=== PATIENT | female | born 1975 | race Caucasian/White ===

== ENCOUNTER 2018-10-10 07:41 | Outpatient (CLI) | payer OTHER ==
[~2018-10-10 07:41] MED LIST: FEXO180T94 PO; MONT4TAB9 PO; MULT1TAB74 PO
== END 2018-10-10 23:59 | disposition home or self-care (01) ==
LOC: LAB 07:41
PROVIDERS: ATTEND Nurse Practitioner Family
DX: J18.9 Pneumonia, unspecified organism (principal); J45.909 Unspecified asthma, uncomplicated
CPT/HCPCS: 71046

== ENCOUNTER 2020-04-01 08:49 | Outpatient (CLI) | payer BC ==
[~2020-04-01 08:49] MED LIST changes: +MULT-620 PO; -MULT1TAB74 PO
[2020-04-01] MEDS ORDERED: LEVO50TA PO (16:53)
[2020-04-01] MEDS ORDERED: OMEP-50 PO (16:53)
[2020-04-01] MEDS ORDERED: VITA-268 PO (16:53)
[2020-04-01] MEDS ORDERED: ALBU8.5H8 PO (16:53)
[2020-04-01] MEDS ORDERED: MONT10TA26 PO (16:53)
== END 2020-04-01 23:59 | disposition home or self-care (01) ==
LOC: RAD 08:49
PROVIDERS: ATTEND Family Medicine
DX: K80.20 Calculus of gallbladder without cholecystitis without obstruction (principal); R16.0 Hepatomegaly, not elsewhere classified; N28.1 Cyst of kidney, acquired
CPT/HCPCS: 76700

== ENCOUNTER 2020-04-01 14:04 | Inpatient (IN) | payer BC ==
[~2020-04-01] VITALS: Ht 165.1 cm; Wt 70.5 kg
[2020-04-01 15:45] LABS: BASOPHILS # (AUTO) 0.1 X10'3 (0-0.2); BASOPHILS % (AUTO) 0.3 % (0-1); EOSINOPHILS % (AUTO) 0 % (0-6); HEMATOCRIT 40.7 % (35.0-45.0); HEMOGLOBIN 13.5 g/dl (12.0-16.0); LYMPHOCYTES # (AUTO) 0.8 X10'3 (1.1-4.8); MEAN CORPUSCULAR HGB CONC 33.3 g/dL (33.0-36.5); MEAN CORPUSCULAR VOLUME 90.2 FL (78-98); MEAN PLATELET VOLUME 8.9 FL (7.4-10.4); MONOCYTES # (AUTO) 0.8 X10'3 (0-0.9); MONOCYTES % (AUTO) 4.3 % (2-12); NEUTROPHILS # (AUTO) 17.9 X10'3 (1.8-7.7); NEUTROPHILS % (AUTO) 91.4 % (42-75); PLATELET COUNT 313 X10'3 (140-440); RED CELL DISTRIBUTION WIDTH 13.2 % (11.5-14.5); WHITE BLOOD COUNT 19.5 X10'3 (4.5-11.0)
[2020-04-01 16:01] LABS: ALANINE AMINOTRANSFERASE 719 U/L (12-78); ALBUMIN 3.9 G/DL (3.4-5.0); ALKALINE PHOSPHATASE 278 IU/L (46-116); ANION GAP 6 (8-16); ASPARTATE AMINO TRANSFERASE 731 U/L (10-37); BILIRUBIN,TOTAL 4.4 MG/DL (0.1-1.0); BLOOD UREA NITROGEN 9 MG/DL (7-18); BUN/CREATININE RATIO 9.5 (6.6-38.0); CALCIUM 9.1 MG/DL (8.5-10.1); CHLORIDE 101 MMOL/L (99-107); CREATININE 0.95 MG/DL (0.40-0.90); GLUCOSE 132 MG/DL (70-104); SODIUM 135 MMOL/L (135-145); TOTAL CARBON DIOXIDE 28.3 MMOL/L (24-32); eGFR 63 ML/MIN
[2020-04-01 16:08] LABS: TOTAL PROTEIN 7.8 G/DL (6.4-8.2)
[2020-04-01] MEDS ORDERED: normal saline 1000ML IV soln IVB ONE (16:40)
[2020-04-01] MEDS ORDERED: CefTRIAXone 1000mg IM Kit (w/lidocaine diluent) IM ONE (16:40)
[2020-04-01] MEDS ORDERED: LEVO50TA PO (16:53)
[2020-04-01] MEDS ORDERED: VITA-268 PO (16:53)
[2020-04-01] MEDS ORDERED: OMEP-50 PO (16:53)
[2020-04-01] MEDS ORDERED: MONT10TA26 PO (16:53)
[2020-04-01] MEDS ORDERED: ALBU8.5H8 PO (16:53)
[2020-04-01] MEDS ORDERED: CefTRIAXone inj 1,000 MG in normal saline 100ml IV soln 100 ML IV ONE (17:10)
[2020-04-01] MEDS ORDERED: CefTRIAXone/D5W-Rocephin 1gm 50 ML IV ONE (17:15)
[2020-04-01] MEDS ORDERED: HYDROcodone/acetaminophen 10/325mg tab PO PRN (17:40)
[2020-04-01] MEDS ORDERED: magnesium hydroxide 30ml (MOM) UD suspension PO PRN (17:40)
[2020-04-01] MEDS ORDERED: ondansetron/PF 4mg/2ml inj IV PRN (17:40)
[2020-04-01] MEDS ORDERED: mag hydrox/Alum hydrox/simeth 30ml oral suspension PO PRN (17:40)
[2020-04-01] MEDS ORDERED: HYDROcodone/acetaminophen 5mg/325mg tablet PO PRN (17:40)
[2020-04-01] MEDS ORDERED: morphine 2 MG/ML inj. syringe IV PRN (17:40)
[2020-04-01] MEDS ORDERED: acetaminophen 325mg tablet PO PRN (17:40)
[2020-04-01] MEDS ORDERED: iohexol 300mg/ml 100ml inj. ONE (17:44)
[2020-04-01 18:48] LABS: URINE HCG NEGATIVE (NEG)
[2020-04-01 18:50] LABS: CLARITY,URINE SLIGHTLY CLOUDY (Clear); GLUCOSE, URINE NEGATIVE (Neg); KETONES,URINE NEGATIVE (Neg); LEUKOCYTE ESTERASE ,URINE NEGATIVE (Neg); NITRITES, URINE NEGATIVE (Neg); OCCULT BLOOD,URINE SMALL (Neg); PH,URINE 6.5 (4.8-8.0); PROTEIN,URINE NEGATIVE (Neg); UROBILINOGEN,URINE 0.2 E.U/dL (0.2-1.0)
[2020-04-01 18:53] LABS: COLOR,URINE DARK YELLOW (Yellow); UA COLLECTION TYPE CLN CATCH MIDSTREAM
[2020-04-01 18:59] LABS: MUCUS STRANDS FEW /LPF (Neg); SQUAMOUS EPITHELIAL CELL,UR MANY /LPF (FEW); TRANSITIONAL EPI CELLS,URINE MODERATE /HPF
[2020-04-01 19:00] LABS: RENAL CELLS, URINE MANY /HPF
[2020-04-01 19:01] LABS: BACTERIA,URINE FEW /HPF (Neg); RBC,URINE 0-2 /HPF (0-2); WBC,URINE 0-4 /HPF (0-4)
[2020-04-01] MEDS: normal saline 1000ml 1,000 ML IV SCH (19:28)
[2020-04-01 23:00] VITALS: BP 107/67
[2020-04-02] VITALS (19 sets, daily range): BP systolic 98–139; BP diastolic 55–87
[2020-04-02] MEDS: piperacillin/tazo 4.5gm/100ml 100 ML IV SCH ×4 (00:35→23:25)
[2020-04-02] MEDS: normal saline 1000ml 1,000 ML IV SCH ×3 (02:05→23:37)
[2020-04-02 05:25] LABS: BASOPHILS % (AUTO) 0.2 % (0-1); EOSINOPHILS % (AUTO) 0.6 % (0-6); HEMATOCRIT 34.2 % (35.0-45.0); HEMOGLOBIN 11.4 g/dl (12.0-16.0); LYMPHOCYTES # (AUTO) 0.8 X10'3 (1.1-4.8); LYMPHOCYTES % (AUTO) 10.5 % (21-51); MEAN CORPUSCULAR HEMOGLOBIN 29.8 PG (27.0-31.0); MEAN CORPUSCULAR HGB CONC 33.3 g/dL (33.0-36.5); MEAN CORPUSCULAR VOLUME 89.6 FL (78-98); MEAN PLATELET VOLUME 8.7 FL (7.4-10.4); MONOCYTES # (AUTO) 0.6 X10'3 (0-0.9); MONOCYTES % (AUTO) 7.4 % (2-12); NEUTROPHILS # (AUTO) 6.5 X10'3 (1.8-7.7); NEUTROPHILS % (AUTO) 81.3 % (42-75); PLATELET COUNT 241 X10'3 (140-440); RED BLOOD COUNT 3.82 X10'6 (4.20-5.60); RED CELL DISTRIBUTION WIDTH 13.7 % (11.5-14.5)
[2020-04-02 05:36] LABS: ALANINE AMINOTRANSFERASE 613 U/L (12-78); ALBUMIN 2.9 G/DL (3.4-5.0); ALBUMIN/GLOBULIN RATIO 0.9 (1.1-1.5); ALKALINE PHOSPHATASE 255 IU/L (46-116); ANION GAP 7 (8-16); ASPARTATE AMINO TRANSFERASE 401 U/L (10-37); BILIRUBIN,TOTAL 3.2 MG/DL (0.1-1.0); BLOOD UREA NITROGEN 9 MG/DL (7-18); CALCIUM 8.1 MG/DL (8.5-10.1); CHLORIDE 109 MMOL/L (99-107); GLUCOSE 94 MG/DL (70-104); POTASSIUM 3.6 MMOL/L (3.5-5.1); SODIUM 141 MMOL/L (135-145); TOTAL CARBON DIOXIDE 24.6 MMOL/L (24-32); TOTAL PROTEIN 6.3 G/DL (6.4-8.2); eGFR 67 ML/MIN
--- NOTE | 2020-04-02 06:23 | NUR ---
Problems reprioritized. Patient report given, questions answered & plan of care reviewed with Belle CARTAGENA.
--- NOTE | 2020-04-02 06:32 | NUR ---
Patient in room POLY 348. I have received report from OSIEL Abrams and had the opportunity to ask questions and assume patient care.
[2020-04-02 10:30] LABS: PARTIAL THROMBOPLASTIN TIME 30 SECONDS (22-32)
[2020-04-02] MEDS ORDERED: ringers solution, lacted 1,000 ML IV SCH ×2 (11:21→13:13)
[2020-04-02] MEDS ORDERED: famotidine/PF 10 mg/ml inj IV ONE (11:25)
--- NOTE | 2020-04-02 12:30 | NUR ---
Called report to Sahra in recovery, Pt being picked up for OR.
[2020-04-02] MEDS ORDERED: BUPIVAcaine/PF 2.5mg/ml (0.25%) 10ml vial ONE (12:40)
[2020-04-02] MEDS ORDERED: BUPIVAcaine/PF 2.5 mg/ml (0.25%) 30ml vial ONE (12:44)
[2020-04-02] MEDS ORDERED: propofol inj 20 ML IV ONE (12:51)
[2020-04-02] MEDS ORDERED: fentaNYL/PF 50MCG/1 ML 2ML syringe ONE (12:51)
[2020-04-02] MEDS ORDERED: rocuronium 10mg/ml inj IV ONE (12:51)
[2020-04-02] MEDS ORDERED: midazolam 2 mg/2 ml injection ONE (12:51)
[2020-04-02] MEDS ORDERED: ceFOXitin 2GM-NS 100mL ADDvant 100 ML IV ONE (13:00)
[2020-04-02] MEDS ORDERED: morphine 2 MG/ML inj. syringe IV PRN (13:15)
[2020-04-02] MEDS ORDERED: meperidine/PF 25mg/ml syringe IV PRN ×3 (13:15)
[2020-04-02] MEDS ORDERED: ondansetron/PF 4mg/2ml inj IV PRN (13:15)
[2020-04-02] MEDS ORDERED: morphine 4 MG/ML inj SYRINge IV PRN (13:15)
[2020-04-02] MEDS ORDERED: proCHLORperazine 10 MG/2 ml inj IV PRN (13:15)
[2020-04-02] MEDS ORDERED: glycopyrrolate 0.2mg/ml inj ONE (13:44)
[2020-04-02] MEDS ORDERED: neostigmine methylsulfate 1 MG/ML 10ml vial ONE (13:44)
[2020-04-02] MEDS ORDERED: ondansetron/PF 4mg/2ml inj ONE (13:44)
--- NOTE | 2020-04-02 13:59 | NUR ---
Received from OR via , accompanied by Anesthesiologist DR ENGLAND and report given by Anesthesiolgist. AWAKENS TO VOICE. VITALS STABLE. DRESSINGS DI. ZBIGNIEW PAIN. ABD SOFT.
--- NOTE | 2020-04-02 15:09 | NUR ---
Report called to receiving nurse. Transferred via [facility] . Special Issues communicated to receiving nurse. AWAKE AND ORIENTED. VITALS STABLE. DRESSINGS DI. ZBIGNIEW PAIN. TO SURGICAL RM 348A AT THIS TIME.
[2020-04-02] MEDS: morphine 2 MG/ML inj. syringe IV PRN ×2 (16:40→23:26)
--- NOTE | 2020-04-02 18:05 | NUR ---
Problems reprioritized. Patient report given, questions answered & plan of care reviewed with OSIEL Asencio.
[2020-04-02] MEDS ORDERED: famotidine 10mg tablet PO SCH (20:00)
[2020-04-02] MEDS: acetaminophen 325mg tablet PO PRN (21:14)
[2020-04-03] VITALS: BP 117/77
[2020-04-03] MEDS: acetaminophen 325mg tablet PO PRN ×2 (04:34→11:46)
[2020-04-03 04:46] VITALS: BP 103/57
[2020-04-03 05:01] LABS: BASOPHILS % (AUTO) 0.1 % (0-1); EOSINOPHILS % (AUTO) 0 % (0-6); HEMATOCRIT 29.7 % (35.0-45.0); LYMPHOCYTES # (AUTO) 0.8 X10'3 (1.1-4.8); LYMPHOCYTES % (AUTO) 8.2 % (21-51); MEAN CORPUSCULAR HEMOGLOBIN 30.3 PG (27.0-31.0); MEAN CORPUSCULAR HGB CONC 33.6 g/dL (33.0-36.5); MEAN PLATELET VOLUME 9.1 FL (7.4-10.4); MONOCYTES # (AUTO) 0.6 X10'3 (0-0.9); MONOCYTES % (AUTO) 5.9 % (2-12); NEUTROPHILS # (AUTO) 8.3 X10'3 (1.8-7.7); NEUTROPHILS % (AUTO) 85.8 % (42-75); PLATELET COUNT 209 X10'3 (140-440); RED CELL DISTRIBUTION WIDTH 13.2 % (11.5-14.5); WHITE BLOOD COUNT 9.7 X10'3 (4.5-11.0)
[2020-04-03 05:20] LABS: ALANINE AMINOTRANSFERASE 364 U/L (12-78); ALBUMIN 2.6 G/DL (3.4-5.0); ALBUMIN/GLOBULIN RATIO 0.8 (1.1-1.5); ALKALINE PHOSPHATASE 192 IU/L (46-116); ANION GAP 9 (8-16); ASPARTATE AMINO TRANSFERASE 124 U/L (10-37); BILIRUBIN,TOTAL 0.9 MG/DL (0.1-1.0); BLOOD UREA NITROGEN 8 MG/DL (7-18); CALCIUM 8.1 MG/DL (8.5-10.1); CHLORIDE 107 MMOL/L (99-107); GLUCOSE 112 MG/DL (70-104); POTASSIUM 4.1 MMOL/L (3.5-5.1); SODIUM 139 MMOL/L (135-145); TOTAL CARBON DIOXIDE 23.5 MMOL/L (24-32); TOTAL PROTEIN 5.7 G/DL (6.4-8.2); eGFR 77 ML/MIN
--- NOTE | 2020-04-03 06:36 | NUR ---
Patient in room POLY 348. I have received report from OSIEL Asencio and had the opportunity to ask questions and assume patient care.
[2020-04-03 07:00] VITALS: BP 98/64
[2020-04-03] MEDS: piperacillin/tazo 4.5gm/100ml 100 ML IV SCH (08:02)
[2020-04-03] MEDS: normal saline 1000ml 1,000 ML IV SCH (09:37)
[2020-04-03] MEDS ORDERED: HYDR-4383 PO (09:39)
[2020-04-03 11:56] VITALS: BP 108/69
== END 2020-04-03 12:48 | disposition home or self-care (01) | DRG 419 ==
LOC: ER 14:04 → ED HOLD 17:37 → SUR 3N 22:05
PROVIDERS: ADMIT Internal Medicine; ATTEND Internal Medicine
PROC: 0FT44ZZ Resection of Gallbladder, Percutaneous Endoscopic Approach (ICD-10-PCS; principal; 2020-04-02 12:47)
DX: K80.00 Calculus of gallbladder with acute cholecystitis without obstruction (principal); E03.9 Hypothyroidism, unspecified; E78.00 Pure hypercholesterolemia, unspecified; F02.80 Dementia in other diseases classified elsewhere, unspecified severity, without behavioral disturbance, psychotic disturbance, mood disturbance, and anxiety; G30.9 Alzheimer's disease, unspecified; K66.0 Peritoneal adhesions (postprocedural) (postinfection); K21.9 Gastro-esophageal reflux disease without esophagitis; K82.8 Other specified diseases of gallbladder; Z86.73 Personal history of transient ischemic attack (TIA), and cerebral infarction without residual deficits; Z86.74 Personal history of sudden cardiac arrest; Z90.49 Acquired absence of other specified parts of digestive tract; Z95.1 Presence of aortocoronary bypass graft; Z88.2 Allergy status to sulfonamides
CPT/HCPCS: 96365; 99285; Z7506; Z7508; 36415; 74177; 80053; 81001; 81025; 82948; 85025; 85610; 85730; 87040; 87081; A4215; A4618; A7000; G0378; J0696; J2175; J2250; J2270; J2405; J2543; J2704; J2710; J3010; J3490; J7030; J7120; Q9967

== ENCOUNTER → 2020-09-24 | Outpatient (CLI) | payer BC ==
[~2020-09-24] MED LIST changes: +ALBU8.5H8 PO; -FEXO180T94 PO; +HYDR-4383 PO; +LEVO50TA PO; +MONT10TA97 PO; -MONT4TAB9 PO; -MULT-620 PO; +OMEP-50 PO; +VITA-268 PO
== END | disposition home or self-care (01) ==
LOC: RAD 07:00
PROVIDERS: ATTEND Nurse Practitioner Family
DX: R10.9 Unspecified abdominal pain (principal)
CPT/HCPCS: 76705

== ENCOUNTER → 2023-12-07 | Outpatient (CLI) | payer BC ==
[~2023-12-07] MED LIST changes: +ALBU8.5H17 PO; -ALBU8.5H8 PO; +MONT-40 PO; -MONT10TA97 PO; -OMEP-50 PO; +OMEP20CA16 PO
== END | disposition home or self-care (01) ==
LOC: VAS 15:33
PROVIDERS: ATTEND Family Medicine
DX: R00.2 Palpitations (principal)
CPT/HCPCS: 93880

== ENCOUNTER 2023-12-15 16:26 | Outpatient (CLI) | payer BC | END 2023-12-15 23:59 | disposition home or self-care (01) | LOC: CARD DIAG 16:26 | PROVIDERS: ATTEND Family Medicine | DX: I08.8 Other rheumatic multiple valve diseases (principal); R00.2 Palpitations | CPT/HCPCS: 93306 ==